=== PATIENT | female | born 1950 | race Caucasian/White ===

== ENCOUNTER 2021-07-11 23:00 | Outpatient (REF) | payer OTHER, SELFPAY ==
[2021-07-13 11:34] LABS: COVID-19 RT-PCR UVMMC Result Negative (Negative)
== END 2021-07-11 23:01 | disposition home or self-care (01) ==
LOC: LBN 23:00
PROVIDERS: PCP Nurse Practitioner Family; Visit Provider Nurse Practitioner Family
DX: Z20.822 Contact with and (suspected) exposure to COVID-19 (principal)
CPT/HCPCS: U0003